=== PATIENT | female | born 1945 | race Caucasian/White ===

== ENCOUNTER → 2016-11-24 | Outpatient (CLI) | payer OTHER | LOC: FIMAGING 14:45 | DX: Z12.31 Encounter for screening mammogram for malignant neoplasm of breast (principal) | CPT/HCPCS: G0202 ==

== ENCOUNTER 2016-11-27 20:26 | Emergency (ER) | payer OTHER ==
[2016-11-27 20:32] VITALS: RESP 16; TEMP 97.5
--- NOTE | 2016-11-27 20:51 | EDPHY ---
H & P Smoking Status: Never smoked Time Seen by Provider: 11/27/16 20:40 HPI/ROS: Chief complaint. Rectal pain HPI. 71-year-old female with history of IBS using probiotics and stool softeners regularly. The last 2 weeks she has had diarrhea. Today she has pain and pressure in her rectum. Last bowel movement was 2 days ago. She has been using do clocks and other laxatives by mouth. No abdominal pain, fever, nausea vomiting. I ROS Constitutional. no fever/chills, no weakness Eyes. no problems with vision ENT. no sore throat, no nasal drainage Cardiovascular. no chest pain Respiratory. no shortness of breath, no cough Abdominal. no abdominal pain, no nausea/vomiting, no diarrhea. Constipation and rectal pain . no problems urinating MS. no calf pain/swelling, no neck/back pain, no joint pain Skin. no rash Lymph. no swollen glands Neuro. no headache, no dizziness, no difficulty walking or with speech (Alec Crystal) Past Medical/Surgical History: Past medical history cholecystectomy, asthma, rheumatoid arthritis (Alec Crystal) Social History: , nonsmoker, no alcohol (Alec Crystal) Physical Exam: General Appearance: Alert well-developed female moderate distress vital signs show the patient be afebrile. Heart rate 128 Eyes: Pupils equal and round no pallor or injection. ENT, Mouth: Mucous membranes are moist. Respiratory: There are no retractions, lungs are clear to auscultation. Cardiovascular: Regular rate and rhythm. Gastrointestinal: Abdomen is soft and nontender, no masses, bowel sounds normal. Rectal exam shows fecal impaction Neurological: Awake and alert, sensory and motor exams grossly normal. Skin: Warm and dry, no rashes. Musculoskeletal: Neck is supple nontender. Extremities symmetrical, full range of motion. Psychiatric: Patient is oriented X 3, there is no agitation. (Alec Crystal) Constitutional: Initial Vital Signs Temperature (C) 36.4 C 11/27/16 20:29 Heart Rate 128 H 11/27/16 20:29 Respiratory Rate 16 11/27/16 20:29 Blood Pressure 143/103 H 11/27/16 20:29 O2 Sat (%) 95 11/27/16 20:29 O2 Delivery Mode Room Air Allergies/Adverse Reactions: No Known Allergies Allergy (Verified 12/11/13 06:26) Home Medications: Medication Instructions Recorded Fluticasone/Salmeter 250/50Mcg 0 puffs IH BIDI 09/07/12 [Advair] Pantoprazole Sodium [Protonix 40mg 09/07/12 (RX)] predniSONE 0 mg PO 09/07/12 Advair 250-50 Diskus 07/24/13 Diazepam [Valium 5 MG (RX)] 5 mg PO Q8 PRN #6 tab 07/24/13 Hydroxychloroquine Sulfate 07/24/13 [Plaquenil 200 mg (RX)] Leflunomide 10 mg PO 07/24/13 levOFLOXACIN [levAQUIN] 750 mg PO DAILY #7 tab 12/11/13 predniSONE 50 mg PO DAILY #3 tablet 12/11/13 Ondansetron Odt [Zofran Odt 4 mg 4 mg PO Q4 PRN #6 tab 01/13/16 (RX)] Ondansetron Odt [Zofran Odt 4 mg 4 mg PO Q4 PRN #6 tab 01/13/16 (RX)] Medical Decision Making Procedures: 930pm-patient was digitally disimpacted. Large amount of firm stool removed from rectal vault. Patient tolerated well. (Joycelyn Encarnacion) IV normal saline. Morphine for pain. Zofran for nausea prevention. Soap suds enema (Alec Crystal) ED Course/Re-evaluation: Manual disimpaction is successful Soap suds enema after the disimpaction with production of large amount of stool Re-evaluation 10:40 p.m. patient symptoms are completely relieved. She feels well. The patient, her , and I discussed treatment plan including criteria for return importance of follow-up further evaluation. She expresses understanding (Alec Crystal) Differential Diagnosis: Patient with a history of IBS and frequent swings from diarrhea to constipation. Tonight she had fecal impaction. she had no abdominal pain. I considered small-bowel obstruction as well (Alec Crystal) - Data Points Medications Given: Discontinued Medications Morphine Sulfate (Morphine) 6 mg IVP EDNOW ONE Stop: 11/27/16 21:06 Last Admin: 11/27/16 21:20 Dose: 6 mg Ondansetron HCl (Zofran) 4 mg IVP EDNOW ONE Stop: 11/27/16 21:06 Last Admin: 11/27/16 21:20 Dose: 4 mg Departure - Departure Disposition: Home, Routine, Self-Care Clinical Impression: Fecal impaction in rectum Condition: Good Instructions: Fecal Impaction (ED) Additional Instructions: Increased fluids. Continue stool softeners. Return for worsening symptoms. Recheck in 1 day if not continuing to improve Referrals: Lan Orellana MD [Primary Care Provider] - 1 day, if not improved
[2016-11-27] MEDS ORDERED: ONDANSETRON 4 MG/2 ML VIAL IVP ONE (21:05)
[2016-11-27 23:16] VITALS: BP 107/66; PULSE 86; O2SAT 96
== END 2016-11-27 23:15 | disposition home or self-care (01) ==
DX: K56.41 Fecal impaction (principal); J45.909 Unspecified asthma, uncomplicated
CPT/HCPCS: 96374; 96375; 99284; J2405

== ENCOUNTER → 2017-01-09 | Outpatient (CLI) | payer OTHER | LOC: CIMAGING 13:04 | PROVIDERS: ATTEND Internal Medicine | DX: M25.511 Pain in right shoulder (principal) | CPT/HCPCS: 73030-PO ==

== ENCOUNTER → 2017-03-12 | Outpatient (CLI) | payer OTHER | LOC: FIMAGING 10:58 | PROVIDERS: ATTEND Obstetrics & Gynecology | DX: Z13.820 Encounter for screening for osteoporosis (principal); M85.80 Other specified disorders of bone density and structure, unspecified site; Z78.0 Asymptomatic menopausal state; Z79.52 Long term (current) use of systemic steroids ==

== ENCOUNTER 2017-09-09 11:07 | Emergency (ER) | payer OTHER ==
--- NOTE | 2017-09-09 11:15 | CPEKG ---
Heart Rate: 78 RR Interval: 769 P-R Interval: 140 QRSD Interval: 84 QT Interval: 372 QTC Interval: 424 P [place]: 69 QRS [place]: 32 T Wave [place]: 39 EKG Severity - NORMAL ECG - EKG Impression: SINUS RHYTHM Electronically Signed By: Pratik Lopez 09-Sep-2017 11:26:02
[2017-09-09] MEDS ORDERED: NS 500 ML IV ONE (11:18)
[2017-09-09 11:21] VITALS: PULSE 88; RESP 16; O2SAT 94
--- NOTE | 2017-09-09 11:23 | EDPHY ---
H & P Time Seen by Provider: 09/09/17 11:11 HPI/ROS: CHIEF COMPLAINT: Chest pain HISTORY OF PRESENT ILLNESS: Patient is a 71-year-old female with a history of rheumatoid arthritis and asthma who has been battling a slight cold over the last few days. This morning around 10:15 she developed sudden epigastric pain that she describes as chest pain. She called 911 who came and administered aspirin and nitro and her symptoms resolved. The EKG and vital signs were unremarkable. She denies ever having any type of cardiac history. She denies shortness of breath or diaphoresis or lightheadedness associated with today's event. No radiation of the pain. She denies abdominal tenderness. She has a history of cholecystectomy and appendectomy. No vomiting or diarrhea. No recent travel. Nonsmoker. No leg pain or swelling. REVIEW OF SYSTEMS: Constitutional: denies: chills, fever, recent illness, recent injury EENTM: denies: blurred vision, double vision, nose congestion Respiratory: denies: cough, shortness of breath Cardiac: See HPI Gastrointestinal/Abdominal: denies: abdominal pain, diarrhea, nausea, vomiting, blood streaked stools Genitourinary: denies: dysuria, frequency, hematuria, pain Musculoskeletal: denies: joint pain, muscle pain Skin: denies: lesions, rash, jaundice, bruising Neurological: denies: headache, numbness, paresthesia, tingling, dizziness, weakness Hematologic/Lymphatic: denies: blood clots, easy bleeding, easy bruising Immunologic/allergic: denies: HIV/AIDS, transplant EXAM: GENERAL: Well-appearing, well-nourished and in no acute distress. HEAD: Atraumatic, normocephalic. EYES: Pupils equal round and reactive to light, extraocular movements intact, sclera anicteric, conjunctiva are normal. ENT: TMs normal, nares patent, oropharynx clear without exudates. Moist mucous membranes. NECK: Normal range of motion, supple without lymphadenopathy or JVD. LUNGS: Breath sounds clear to auscultation bilaterally and equal. No wheezes rales or rhonchi. HEART: Regular rate and rhythm without murmurs, rubs or gallops. ABDOMEN: Soft, nontender, normoactive bowel sounds. No guarding, no rebound. No masses appreciated. BACK: No CVA tenderness, no spinal tenderness, step-offs or deformities EXTREMITIES: Normal range of motion, no pitting or edema. No clubbing or cyanosis. NEUROLOGICAL: Cranial nerves II through XII grossly intact. Normal speech, normal gait. 5/5 strength, normal movement in all extremities, normal sensation PSYCH: Normal mood, normal affect. SKIN: Warm, dry, normal turgor, no visible rashes or lesions. Source: Patient Exam Limitations: No limitations - Medical/Surgical History Hx Asthma: Yes Hx Chronic Respiratory Disease: No Hx Diabetes: No Hx Cardiac Disease: No Hx Renal Disease: No Hx Cirrhosis: No Hx Alcoholism: No Hx HIV/AIDS: No Hx Splenectomy or Spleen Trauma: No Other PMH: PMH:, Asthma, RA - Family History Significant Family History: No pertinent family hx - Social History Smoking Status: Never smoked Alcohol Use: Sober Drug Use: None Constitutional: Initial Vital Signs Temperature (C) 36.3 C 09/09/17 11:19 Heart Rate 88 09/09/17 11:19 Respiratory Rate 16 09/09/17 11:19 Blood Pressure 176/110 H 09/09/17 11:19 O2 Sat (%) 94 09/09/17 11:19 O2 Delivery Mode Room Air Allergies/Adverse Reactions: No Known Allergies Allergy (Verified 12/11/13 06:26) Home Medications: Medication Instructions Recorded Fluticasone/Salmeter 250/50Mcg 0 puffs IH BIDI 09/07/12 [Advair] Pantoprazole Sodium [Protonix 40mg 09/07/12 (RX)] predniSONE 0 mg PO 09/07/12 Advair 250-50 Diskus 07/24/13 Diazepam [Valium 5 MG (RX)] 5 mg PO Q8 PRN #6 tab 07/24/13 Hydroxychloroquine Sulfate 07/24/13 [Plaquenil 200 mg (RX)] Leflunomide 10 mg PO 07/24/13 levOFLOXACIN [levAQUIN] 750 mg PO DAILY #7 tab 12/11/13 predniSONE 50 mg PO DAILY #3 tablet 12/11/13 Ondansetron Odt [Zofran Odt 4 mg 4 mg PO Q4 PRN #6 tab 01/13/16 (RX)] Ondansetron Odt [Zofran Odt 4 mg 4 mg PO Q4 PRN #6 tab 01/13/16 (RX)] Medical Decision Making - Diagnostics EKG Interpretation: An EKG obtained and was read and documented in trace view. Please see trace view for full reading and report. Sinus rhythm, no acute ischemic changes Imaging: Discussed imaging studies w/ call center recruiter Radiologist ED Course/Re-evaluation: 12:05 p.m. the patient remains asymptomatic. I recommended admission for further workup and stress testing. The patient declines. She will stay for a repeat troponin which we will do a 2:00 p.m.. She will follow up with Dr. Orellana for outpatient stress testing. 2:45 p.m. the patient repeat troponin is negative. Is eager to go home. We discussed the differential. She will follow up with her primary for stress testing. She declines admission or further observation. We discussed indications for returning. Differential Diagnosis: Partial list of the Differential diagnosis considered include but were not limited to; acute coronary disease, peptic ulcer disease, esophageal spasm and although unlikely based on the history and physical exam, I also considered dissection, PE, pneumonia, pneumothorax, aneurysm. I discussed these differential diagnoses and the plan with the patient as well as the usual and expected course. The patient understands that the diagnosis is provisional and that in medicine we are not always correct and that further workup is often warranted. Usual and customary warnings were given. All of the patient's questions were answered. The patient was instructed to return to the emergency department should the symptoms at all worsen or return, otherwise to followup with the physician as we discussed. - Data Points Laboratory Results: Laboratory Results 09/09/17 11:00 09/09/17 11:00 Medications Given: Discontinued Medications Sodium Chloride (Ns) 500 mls @ 1,000 mls/hr IV EDNOW ONE PRN Reason: Protocol Stop: 09/09/17 11:47 Last Admin: 09/09/17 11:48 Dose: 500 mls Departure - Departure Disposition: Home, Routine, Self-Care Clinical Impression: Epigastric pain Condition: Fair Instructions: Epigastric Pain (ED) Additional Instructions: Get a follow-up stress test as we discussed. Referrals: Patient,NotPresent [Unknown] - As per Instructions Lan Orellana MD [Primary Care Provider] - 1-2 days without fail
[2017-09-09 11:25] LABS: PLATELET COUNT 273 10^3/uL (150-400)
[2017-09-09 11:34] LABS: INR 0.89 (0.83-1.16); PROTIME(PATIENT) 12.3 SEC (12.0-15.0)
[2017-09-09 15:14] VITALS: BP 163/93; TEMP 97.9
== END 2017-09-09 15:20 | disposition home or self-care (01) ==
LOC: EDUNIT#
DX: R10.13 Epigastric pain (principal); J45.909 Unspecified asthma, uncomplicated; E86.9 Volume depletion, unspecified

== ENCOUNTER 2017-10-20 13:12 | Day surgery (SDC) | payer OTHER ==
[2017-10-20] MEDS ORDERED: ATROPINE SULFATE 1 MG/10 ML SYR ONE (13:56)
[2017-10-20] MEDS ORDERED: DOBUTamine 500 MG in D5W 250 ML IV SCH (14:00)
[2017-10-20] MEDS ORDERED: DOBUTamine/DEXTROSE 250 ML IV ONE (14:00)
--- NOTE | 2017-10-20 14:11 | PDHPUP ---
History & Physical Update H&P update statement: This history and physical update is based on an assessment of the patient which was completed after admission or registration (within 24 hours), but prior to the surgery/procedure. H&P update: H&P reviewed & patient examined, no change in patient's condition since H&P completed
--- NOTE | 2017-10-21 15:39 | ECHO ---
[email or web address] [address] [address] Main: [phone] Fax: Stress Echocardiogram Name: LUANA DE LA VEGA MR#: [id number] Study Date: 10/20/2017 Study Time: 01:42 PM Date of : 1945 Age: 71 year(s) Height: ( ) Weight: ( ) BSA: Gender: Female Examination: Stress Echo Indication: Chest pain Image Quality: Contrast: Requested by: Ely Carlisle Heart Rate: Rhythm: BP: / Procedure Staff Audiology Technician: Keerthi Edge RDCS Reading Physician: Ely Carlisle Requesting Provider: Sukhdeep Stuart Stress Details BP AT Rest: 157/82 BP Max: 176/76 Target HR: 128 bpm Achieved: Yes Max HR: 133 bpm Conclusions: Dobutamine stress echo negative for ischemia Findings: Stress ECG Findings: Stress ECG Impression: Normal stress test Heartrate Response: Appropriate Blood Pressure Response: Resting hypertension - appropriate response Reason for Test: Suspected Angina Reason for Termination: Target heart rate achieved Resting ECG: Normal ST Changes: None Chest Pain: None Arrhythmias: ventricular premature beats Stress Echo Findings: Exam Comments: This was a dobutamine stress echo. No wall motion abnormalities at rest or at peak HR.. (No Signature Object) Patient: LUANA DE LA VEGA Study Date: 10/20/2017 Page 1 of 2 01:42 PM Patient: LUANA DE LA VEGA Study Date: 10/20/2017 Page 2 of 2 01:42 PM [id number]
== END 2017-10-20 15:03 | disposition home or self-care (01) ==
LOC: FCATH 13:12
PROVIDERS: ATTEND Internal Medicine Cardiovascular Disease
PROC: 4A12XM4 Monitoring of Cardiac Stress, External Approach (ICD-10-PCS; principal; 2017-10-20)
DX: R07.9 Chest pain, unspecified (principal); M25.511 Pain in right shoulder; J45.909 Unspecified asthma, uncomplicated; F41.9 Anxiety disorder, unspecified; K21.9 Gastro-esophageal reflux disease without esophagitis; K58.0 Irritable bowel syndrome with diarrhea; M06.9 Rheumatoid arthritis, unspecified
CPT/HCPCS: J0461; J1250

== ENCOUNTER → 2017-11-25 | Outpatient (CLI) | payer OTHER | LOC: FIMAGING 14:26 | PROVIDERS: ATTEND Obstetrics & Gynecology | DX: Z12.31 Encounter for screening mammogram for malignant neoplasm of breast (principal) ==

== ENCOUNTER → 2018-02-12 | Outpatient (CLI) | payer OTHER | LOC: CIMAGING 13:49 | PROVIDERS: ATTEND Internal Medicine | DX: R07.81 Pleurodynia (principal) | CPT/HCPCS: 71101-PO ==

== ENCOUNTER → 2018-09-28 | Outpatient (CLI) | payer OTHER | LOC: FIMAGING 08:27 | PROVIDERS: ATTEND Internal Medicine | DX: K21.9 Gastro-esophageal reflux disease without esophagitis (principal); K44.9 Diaphragmatic hernia without obstruction or gangrene ==

== ENCOUNTER 2018-09-30 08:54 | Emergency (ER) | payer OTHER ==
[2018-09-30] MEDS ORDERED: NS 1,000 ML IV ONE (09:31)
--- NOTE | 2018-09-30 09:45 | EDPHY ---
H & P Stated Complaint: RLQ pain - Personal History Current Tetanus/Diphtheria Vaccine: Yes - Medical/Surgical History Hx Asthma: Yes Hx Chronic Respiratory Disease: No Hx Diabetes: No Hx Cardiac Disease: No Hx Renal Disease: No Hx Cirrhosis: No Hx Alcoholism: No Hx HIV/AIDS: No Hx Splenectomy or Spleen Trauma: No Other PMH: PMH:, Asthma, RA - Social History Smoking Status: Never smoked Time Seen by Provider: 09/30/18 09:30 HPI/ROS: CHIEF COMPLAINT: Abdominal pain HISTORY OF PRESENT ILLNESS: 72-year-old female remote history of cholecystectomy complaining of recurrent, waxing waning epigastric and right upper quadrant pain for the past several days. She was seen by her primary care provider and had outpatient ultrasound and swallow study performed yesterday at [facility] which were centrally negative for acute pathology. Last evening approximately 9:30 p.m. She developed return of her epigastric and right upper quadrant pain which is now by enlarged resolved. This occurred after she was bowling. She had eaten dinner approximately 4:00 p.m. Last evening. She had 1 glass of wine with bowling last night. PRIMARY CARE PROVIDER:Dr. Winston Orellana REVIEW OF SYSTEMS: 10 systems reviewed and negative with the exception of the elements mentioned in the history of present illness PAST MEDICAL & SURGICAL HISTORY: Cholecystectomy SOCIAL HISTORY: PHYSICAL EXAM (Prior to examination, patient consented to physical exam, hands were washed and my usual and customary physical exam procedures followed) 1) GENERAL: Well-developed, well-nourished, alert and oriented. Appears to be in no acute distress. 2) HEAD: Normocephalic, atraumatic 3) HEENT: Pupils equal, round, reactive to light bilaterally. Sclera anicteric. 4) NECK: Full range of motion, no meningeal signs. 5) LUNGS: Clear auscultation bilaterally, no wheezes, no rhonchi, no retractions. 6) HEART: Regular rate and rhythm, no murmur, no heave, no gallop. 7) ABDOMEN: No guarding, tender to palpation epigastrium and right upper quadrant. No palpable or pulsatile mass. negative McBurney's, negative Ramos' s, negative Rovsing's, negative peritoneal sign, 8) MUSCULOSKELETAL: Moving all extremities, no focal areas of tenderness, no obvious trauma. No peripheral edema or discoloration. 9) BACK: No CVA tenderness, no midline vertebral tenderness, no fluctuance, no step-off, no obvious trauma, no visual or palpable abnormality. 10) SKIN: No rash, no petechiae. 11) Psychiatric: Patient is oriented X 3, there is no agitation. DIFFERENTIAL DIAGNOSIS: In no particular order, including but not limited to biliary colic, cholecystitis, peptic ulcer disease, cardiac pathology, pulmonary infectious etiology, pancreatitis, and gastroenteritis. This is a partial list of diagnoses considered. These considerations are based on history , physical exam, past history and reassessment. (Isidro Zamora) Constitutional: Initial Vital Signs Temperature (C) 36.5 C 09/30/18 08:56 Heart Rate 91 09/30/18 08:56 Respiratory Rate 18 09/30/18 08:56 Blood Pressure 155/82 H 09/30/18 08:56 O2 Sat (%) 97 09/30/18 08:56 O2 Delivery Mode Room Air Allergies/Adverse Reactions: No Known Allergies Allergy (Verified 09/30/18 08:59) Home Medications: Medication Instructions Recorded Fluticasone/Salmeter 250/50Mcg 0 puffs IH BIDI 09/07/12 [Advair] Pantoprazole Sodium [Protonix 40mg 09/07/12 (RX)] predniSONE 0 mg PO 09/07/12 Advair 250-50 Diskus 07/24/13 Diazepam [Valium 5 MG (RX)] 5 mg PO Q8 PRN #6 tab 07/24/13 Hydroxychloroquine Sulfate 07/24/13 [Plaquenil 200 mg (RX)] Leflunomide 10 mg PO 07/24/13 levOFLOXACIN [levAQUIN] 750 mg PO DAILY #7 tab 12/11/13 predniSONE 50 mg PO DAILY #3 tablet 12/11/13 Ondansetron Odt [Zofran Odt 4 mg 4 mg PO Q4 PRN #6 tab 01/13/16 (RX)] Ondansetron Odt [Zofran Odt 4 mg 4 mg PO Q4 PRN #6 tab 01/13/16 (RX)] Pantoprazole Sodium [Protonix 40mg 40 mg PO DAILY #30 tab 09/30/18 (RX)] Ranitidine HCl [Zantac] 150 mg PO BID #30 tablet 09/30/18 Medical Decision Making - Diagnostics Imaging Results: The images reviewed myself (Isidro Zamora) ED Course/Re-evaluation: 9:42 a.m.: I reviewed the patient's imaging results from yesterday which include abdominal ultrasound and a GI swallow study. Here in emergency department the patient complains of epigastric and right upper quadrant pain since last evening. Will obtain diagnostic studies and plan on CT imaging, diagnostic studies. Care of patient under supervision of secondary supervising physician Dr Roa with whom I discussed case. 11:40 a.m.: I consulted with patient's primary care provider Dr. Winston Orellana regarding the imaging studies. The patient's CT had to be aborted due to the extent of barium in her intestine which would cause significant artifact on the CT. In addition, patient would not be able to have an MRI due to the extent of barium in her abdomen. Dr. Orellana recommend follow up with Gastroenterology. Spoke with the patient and I offered hospital admission however she prefers to be discharged, states that she will follow up with Dr. Ramon Mcfarlane, her certified legal investigator, on and outpatient basis. I believe the patient to have decision-making capacity. Will discharge her with proton pump inhibitor in Zantac as well as my dietary precautions instructions. (Isidro Zamora) Other Provider: The patient was evaluated and managed by the Physician Manager Assessment. I discussed the patient's presentation and course with the midlevel provider with them and agree with the evaluation. My co-signature indicates that I have reviewed this chart and I agree with the findings and plan of care as documented. I am the secondary supervising physician. (Kyleigh Roa) - Data Points Laboratory Results: Laboratory Results 09/30/18 10:09 09/30/18 10:09 Medications Given: Discontinued Medications Sodium Chloride (Ns) 1,000 mls @ 0 mls/hr IV EDNOW ONE; Wide Open PRN Reason: Protocol Stop: 09/30/18 09:32 Last Admin: 09/30/18 10:00 Dose: 1,000 mls Point of Care Test Results: Chemistry 01/31/19 01/31/19 10:09 10:05 POC Sodium 143 mEq/L mEq/L (135-145) POC Potassium 3.4 mEq/L mEq/L (3.3-5.0) POC Chloride 109 mEq/L mEq/L (97-110) POC Total CO2 21 mEq/L L mEq/L (22-31) POC BUN 11 mg/dL mg/dL (7-23) POC Creatinine 0.6 mg/dL mg/dL (0.6-1.0) POC Glucose 98 mg/dL mg/dL (70-100) POC Troponin I 0.00 ng/mL ng/mL (0.00-0.08) ISTAT H&H 09/30/18 10:09 POC Hgb 13.3 gm/dL gm/dL (12.6-16.3) POC Hct 39 % % (38-47) Departure - Departure Disposition: Home, Routine, Self-Care Clinical Impression: Abdominal pain Condition: Good Instructions: Acute Abdominal Pain (ED) Additional Instructions: Seek immediate medical attention if you develop new or worsening symptoms, if you develop fevers, chills, inability to tolerate oral intake or any other symptoms that concerns you. I recommend you eat bland food, avoid alcohol, soft drinks/soda Referrals: Ramon Mcfarlane MD [Medical Doctor] - As per Instructions Prescriptions: Pantoprazole Sodium [Protonix 40mg (RX)] 40 mg PO DAILY #30 tab Ranitidine HCl [Zantac] 150 mg PO BID #30 tablet
[2018-09-30 10:15] LABS: PLATELET COUNT 228 10^3/uL (150-400)
[2018-09-30] MEDS ORDERED: IOHEXOL 300 mgI/ML (OMNIPAQUE) 150 ML BTL IV ONE (11:04)
[2018-09-30 12:23] VITALS: BP 148/75
--- NOTE | 2018-10-01 13:39 | CPEKG ---
Test Reason : OPEN Blood Pressure : / mmHG Vent. Rate : 084 BPM Atrial Rate : 085 BPM P-R Int : 141 ms QRS Dur : 083 ms QT Int : 385 ms P-R-T Axes : 020 032 031 degrees QTc Int : 456 ms Sinus rhythm Confirmed by Kyleigh Roa ([id number]) on 10/01/2018 1:38:49 PM Referred By: Kyleigh Roa Confirmed By:Kyleigh Roa
== END 2018-09-30 12:23 | disposition home or self-care (01) ==
DX: R10.11 Right upper quadrant pain (principal); Z90.49 Acquired absence of other specified parts of digestive tract
CPT/HCPCS: 71046; 74177; 93005; 99285; Q9967; 82435-PO; 82565-PO; 82947-PO; 84132-PO; 84295-PO; 84484-ER; 84520-PO; 85014-ER

== ENCOUNTER → 2018-12-02 | Outpatient (CLI) | payer OTHER | LOC: FIMAGING 14:35 | PROVIDERS: ATTEND Obstetrics & Gynecology | DX: Z12.31 Encounter for screening mammogram for malignant neoplasm of breast (principal); R92.8 Other abnormal and inconclusive findings on diagnostic imaging of breast ==

== ENCOUNTER → 2018-12-10 | Outpatient (CLI) | payer OTHER | LOC: FIMAGING 14:46 | PROVIDERS: ATTEND Midwife | DX: R92.8 Other abnormal and inconclusive findings on diagnostic imaging of breast (principal) ==